=== PATIENT | female | born 1940 | race Caucasian/White ===

== ENCOUNTER 2019-01-16 11:30 | Inpatient (IN) | payer MEDICARE ==
[~2019-01-16] VITALS: Ht 170.2 cm; Wt 84.5 kg
[2019-01-16 12:30] VITALS: BP 183/103
[2019-01-16 12:33] LABS: BASOPHILS % (AUTO) 0.9 % (0.0-5.0); EOSINOPHILS % (AUTO) 0.4 % (0.0-8.0); HEMATOCRIT 42.2 % (36-48); LYMPHOCYTES % (AUTO) 39.6 % (21.0-51.0); MEAN CORPUSCULAR HEMOGLOBIN 32.7 pg (27.0-33.0); MEAN CORPUSCULAR HGB CONC 34.1 g/dL (32.0-36.0); MEAN CORPUSCULAR VOLUME 95.8 fL (79-99); MONOCYTES % (AUTO) 7.1 % (3.0-13.0); NUCLEATED RED BLOOD CELLS 0.1 % (0.0-0.19); PLATELET COUNT (AUTO) 142 K/uL (130-400); RED CELL DISTRIBUTION WIDTH 12.5 % (11.0-15.5); WHITE BLOOD COUNT (AUTO) 5.3 K/uL (4.8-10.8)
[2019-01-16 12:44] LABS: CREATININE 0.8 mg/dL (0.5-1.5); POTASSIUM 4.6 mmol/L (3.5-5.1)
[2019-01-16] MEDS ORDERED: BACL10TA PO (13:35)
[2019-01-16] MEDS ORDERED: EZET10 PO (13:35)
[2019-01-16] MEDS ORDERED: OMEG1CAP31 PO (13:35)
[2019-01-16] MEDS ORDERED: ACET-2247 PO (13:35)
[2019-01-16] MEDS ORDERED: LOSA50TA64 PO (13:35)
[2019-01-16] MEDS ORDERED: ASPI-555 PO (13:35)
[2019-01-16] MEDS ORDERED: VITA400C70 PO (13:35)
[2019-01-16] MEDS ORDERED: CHOL500045 PO (13:35)
[2019-01-16] MEDS ORDERED: FLUT16H NASAL (13:35)
[2019-01-17] VITALS (19 sets, daily range): BP systolic 113–148; BP diastolic 19–79
[2019-01-17] MEDS: CEFAZOLIN SODIUM 1 GM VIAL IVP SCH ×4 (05:00→16:48)
[2019-01-17] MEDS ORDERED: THROMBIN-JMI 20000 UNIT KIT TP ONE (07:23)
[2019-01-17] MEDS ORDERED: DURAMORPH PF1 MG/ML 10ML AMP IV ONE (07:23)
[2019-01-17] MEDS ORDERED: BACITRACIN 50,000 UNIT VIAL ONE (07:23)
[2019-01-17] MEDS ORDERED: BUPIVACAINE/EPI/PF 0.25% 30ML VIAL IJ ONE (07:23)
[2019-01-17] MEDS ORDERED: LACTATED RINGERS 1000ML 1,000 ML IV ONE (07:55)
[2019-01-17] MEDS ORDERED: LIDOCAINE PF 2% 5ML ABBOJECT ONE (08:05)
[2019-01-17] MEDS ORDERED: MIDAZOLAM HCL 1 MG/ML 2ML VIAL ONE (08:06)
[2019-01-17] MEDS ORDERED: PROPOFOL 10 MG/ML 20ML VIAL IV ONE (08:06)
[2019-01-17] MEDS ORDERED: ROCURONIUM 10MG/1ML SYR 10 MG/ML ML ONE (08:06)
[2019-01-17] MEDS ORDERED: FENTANYL CITRATE PF 50 MCG/1 ML 2ML VIAL ONE (08:06)
[2019-01-17] MEDS ORDERED: PROPOFOL 1000 MG/100 ML 100 ML IV ONE (08:21)
[2019-01-17] MEDS ORDERED: ARTIFICIAL TEARS 3.5 GM OINTMENT OP ONE (09:00)
[2019-01-17] MEDS: LACTATED RINGERS 1000ML 1,000 ML IV SCH (11:44)
[2019-01-17] MEDS: DEXAMETHASONE SOD PHOSPHATE 4 MG/ML 1ML VIAL IVP SCH ×3 (11:45→23:47)
[2019-01-17] MEDS ORDERED: MORPHINE SULFATE 2 MG/ML 1ML SYG IVP PRN (11:45)
[2019-01-17] MEDS ORDERED: SODIUM CHLORIDE 0.9% 10 ML VIAL IVP PRN (11:45)
[2019-01-17] MEDS ORDERED: PROMETHAZINE HCL 25 MG/ML 1ML AMPULE IM PRN (11:45)
[2019-01-17] MEDS ORDERED: ACETAMINOPHEN 325 MG TAB PO PRN (11:45)
[2019-01-17] MEDS ORDERED: MEPERIDINE-PF 25 MG/ML SYG ONE (12:11)
[2019-01-17] MEDS: HYDROCODONE/ACETAMINOPHEN 5/325 MG TAB PO PRN ×2 (16:42→20:05)
[2019-01-17] MEDS: FLUTICASONE PROPIONATE 50MCG/SPRAY 16 GM BOTTLE NS SCH (20:32)
[2019-01-17] MEDS: FISH OIL 1000 MG/CAP PO SCH (20:32)
[2019-01-17] MEDS ORDERED: BACLOFEN 10 MG TABLET PO SCH (21:00)
[2019-01-18] MEDS: LACTATED RINGERS 1000ML 1,000 ML IV SCH (00:11)
[2019-01-18 03:05] VITALS: BP 132/68
[2019-01-18] MEDS: DEXAMETHASONE SOD PHOSPHATE 4 MG/ML 1ML VIAL IVP SCH (05:31)
--- NOTE | 2019-01-18 07:20 | NUR ---
DRESSING CHANGED AT THIS TIME [address], DRAIN REMOVED INTACT AT THIS TIME. NO REDNESS, NO EDEMA NOTED AT THIS TIME. AREA CLEANSED WITH BETADINE AND COVERED WITH 4X4 AND SECURED WITH MEDIPORE TAPE. PATIENT TOLERATED WELL.
--- NOTE | 2019-01-18 07:25 | NUR ---
MD ROUNDS DR FONTANEZ AT BEDSIDE. SPEAKING TO PATIENT CONCERNING DISCHARGE PLAN. PATIENT WAS GIVEN OPPORTUNITY TO ASK QUESTIONS. PATIENT VERBALIZED UNDERSTANDING.
[2019-01-18 07:58] VITALS: BP 136/76
[2019-01-18] MEDS ORDERED: **HM** VIT D3 5000 UNITS PO SCH (09:00)
[2019-01-18] MEDS ORDERED: EZETIMIBE 10 MG TAB PO SCH (09:00)
[2019-01-18] MEDS: FISH OIL 1000 MG/CAP PO SCH (09:00)
[2019-01-18] MEDS ORDERED: VITAMIN E 400 UNIT CAPSULE PO SCH (09:00)
[2019-01-18] MEDS ORDERED: LOSARTAN 50 MG TABLET PO SCH (09:00)
[2019-01-18] MEDS ORDERED: ASPIRIN 81MG TAB.CHEW PO SCH (09:00)
--- NOTE | 2019-01-18 09:00 | NUR ---
ONE DAY STAY PT HERE FOR BACK SURGERY , LIVES WITH SPOUSE, NO DME, SPOUSE CAN DRIVE, HH WAS DECLINED BY PTI; FEELS SAFE TO GO HOME Addendum: 01/19/19 at 1731 by PAOLA SHEA RN CM Amended: Links added.
[2019-01-18] MEDS: FLUTICASONE PROPIONATE 50MCG/SPRAY 16 GM BOTTLE NS SCH (09:35)
--- NOTE | 2019-01-18 10:40 | NUR ---
DISCHARGE INSTRUCTIONS DISCUSSED WITH PATIENT AND FAMILY DISCUSSED DR. FONTANEZ SPINE SURGERY DISCHARGE INSTRUCTIONS REGARDING INCISION CARE, GENERAL INSTRUCTIONS, AND SIGNS AND SYMPTOMS TO REPORT TO YOUR DOCTOR. PATIENT WAS INSTRUCTED TO FOLLOW UP WITH DR. FONTANEZ SCHEDULED OR SOONER IF ANY CONCERNS AND WAS REMINDED TO TAKE STAPLE REMOVAL SET TO FOLLOW UP. PATIENT WAS INSTRUCTED TO CONTINUE HOME MEDS AND PRESCRIPTION FOR TRAMADOL WAS GIVEN. DISCUSSED MED NAME, PURPOSE DOSE, ROUTE, FREQUENCY, DURATION, SIDE EFFECTS AND TIME NEXT DOSE MAY BE GIVEN. PATIENT WAS INSTRUCTED TO CALL MD OFFICE WITH ANY QUESTIONS OR CONCERNS, VISIT THE EMERGENCY ROOM OR CALL 911 FOR CHEST PAIN AND SHORTNESS OF BREATH. ABOVE INSTRUCTIONS WERE DISCUSSED UTILIZING TEACHBACK WITH SUCCESSFUL INFORMATION OBTAINED FROM PATIENT. PATIENT WAS GIVEN OPPORTUNITY TO ASK QUESTIONS. PATIENT VERBALIZED UNDERSTANDING.
== END 2019-01-18 11:07 | disposition home or self-care (01) | DRG 517 ==
LOC: EDSTATUS 15:30 → DAHIP 01-17 05:55 → 4AH 01-17 12:24
PROVIDERS: ADMIT Neurological Surgery; ATTEND Neurological Surgery
PROC: 01NB0ZZ Release Lumbar Nerve, Open Approach (ICD-10-PCS; principal; 2019-01-17 09:20)
PROC: 4A10X4G Monitoring of Central Nervous Electrical Activity, Intraoperative, External Approach (ICD-10-PCS; 2019-01-17 09:20)
PROC: BR191ZZ Fluoroscopy of Lumbar Spine using Low Osmolar Contrast (ICD-10-PCS; 2019-01-17 09:20)
DX: M48.061 Spinal stenosis, lumbar region without neurogenic claudication (principal); M54.16 Radiculopathy, lumbar region
CPT/HCPCS: 36415; 72020; 80048; 85025; 93005; A4344; G0378; J0690; J1100; J2001; J2175; J2250; J2274; J2704; J3010; J3490; J7030; J7120